=== PATIENT | female | born 1970 | race Hispanic/Latino ===

== ENCOUNTER 2017-04-23 10:40 | Outpatient (CLI) | payer BC ==
--- NOTE | 2017-04-23 15:51 | Mammography Report ---
BILATERAL DIGITAL SCREENING MAMMOGRAM with CAD and 3-D TOMOSYNTHESIS: 04/23/17 CLINICAL: Routine screening. COMPARISON:03/06/16, 02/09/15 and 01/08/13 FINDINGS: The breasts are mostly fatty with stable bilateral residual heterogeneously dense retroareolar fibroglandular densities. No mass, architectural distortion or suspicious calcifications. IMPRESSION: No mammographic evidence of malignancy. BI-RADS CATEGORY: 2 - - Benign RECOMMENDATION: Routine mammographic screening in one year. COMMENT: Patient follow-up letters are generated by our [facility] application.
== END 2017-04-23 10:41 | disposition home or self-care (01) ==
LOC: MAMMO 10:40
PROVIDERS: ATTEND Surgery
DX: Z12.31 Encounter for screening mammogram for malignant neoplasm of breast (principal)
CPT/HCPCS: 77063; G0202; 77067

== ENCOUNTER 2019-08-11 13:08 | Emergency (ER) | payer BC, OTHER ==
--- NOTE | 2019-08-11 13:21 | Event Note ---
ED Screening Note Date of service: 08/11/19 Time: 13:20 ED Screening Note: 49-year-old female presents to the emergency room for an acute onset of nausea and headache that is between her eyes at the bridge of her nose. Patient reports a past medical history of migraines but does not feel like it is her typical migraine presentation. Patient reports that she is started having heart palpitation was not able to lay her head down as if she was having discomfort. Patient denies any cardiac history. This initial assessment/diagnostic orders/clinical plan/treatment(s) is/are subject to change based on patients health status, clinical progression and re- assessment by fellow clinical providers in the ED. Further treatment and workup at subsequent clinical providers discretion. Patient/guardian urged not to elope from the ED as their condition may be serious if not clinically assessed and managed. Initial orders include: CBC CMP EKG
[2019-08-11 13:55] LABS: Basophils % (Auto) 0.5 % (0.0-1.8); Eosinophils # (Auto) 0.1 K/mm3 (0.0-0.4); Eosinophils % (Auto) 0.9 % (0.0-4.3); Hemoglobin 13.4 gm/dl (10.1-14.3); Lymphocytes # (Auto) 1.6 K/mm3 (1.2-5.4); Lymphocytes % (Auto) 21.8 % (13.4-35.0); Mean Corpuscular HGB Conc 34 % (30-34); Mean Corpuscular Volume 89 fl (79-97); Monocytes # (Auto) 0.3 K/mm3 (0.0-0.8); Monocytes % (Auto) 4.4 % (0.0-7.3); Platelet Count 244 K/mm3 (140-440); Red Cell Distribution Width 13.1 % (13.2-15.2)
[2019-08-11] MEDS ORDERED: MORPHINE 2 MG/1 ML INJ IV ONE (14:04)
[2019-08-11] MEDS ORDERED: ONDANSETRON 4 MG/2 ML INJ IV ONE (14:04)
--- NOTE | 2019-08-11 14:11 | Emergency Department Report ---
ED General Adult HPI - General Chief complaint: Dizziness Stated complaint: HOT, N/V Time Seen by Provider: 08/11/19 13:53 Source: patient Mode of arrival: Ambulatory Limitations: No Limitations - History of Present Illness Initial comments: This is a 49-year old female who describes the rapid onset of headache which she states is very well localized in the mid forehead and nasal bridge area. She states she also feels a headache although less severe in the occiput. Patient states that she has had a history of migraine which causes right-sided headache. However this headache is different in quality and in location. She states that she has never had a CT scan of her head or any other diagnostic study of her brain. She has not seen a neurologist. She states that she has been prescribed Maxalt for migraine as well as prophylactic medication which she does not take now. She states that she did not take her Maxalt with this headache. She felt like she was clammy and somewhat dizzy at the onset. She felt like this headache was different and required evaluation in the emergency department. She is keeping her eyes closed but denies photophobia or photosensitivity. She likewise is not complaining of nausea or vomiting. She states that she ordinarily does have spots or squiggly lines with her migraine headache but not at this time. She denies neck stiffness or pain. -: Sudden (Fairly rapid onset) Location: head Radiation: non-radiation (As above described) Quality: sharp Consistency: constant Improves with: none Worsens with: none Associated Symptoms: other (Dizziness as above, felt clammy) Treatments Prior to Arrival: none - Related Data Previous Rx's Medication Instructions Recorded Last Taken Type Butalb/Acetaminophen/Caffeine 1 cap PO Q6HR PRN #10 cap 08/11/19 Unknown Rx [Fioricet 50-300-40 mg CAP] Allergies Allergy/AdvReac Type Severity Reaction Status Date / Time No Known Allergies Allergy Unverified 04/23/17 10:40 ED Review of Systems ROS: Stated complaint: HOT, N/V Other details as noted in HPI Constitutional: denies: chills, fever Eyes: denies: eye pain, eye discharge, vision change ENT: denies: ear pain, throat pain Respiratory: denies: cough, shortness of breath, wheezing Cardiovascular: denies: chest pain, palpitations Endocrine: no symptoms reported Gastrointestinal: denies: abdominal pain, nausea, diarrhea Genitourinary: denies: urgency, dysuria, discharge Musculoskeletal: denies: back pain, joint swelling, arthralgia Skin: denies: rash, lesions Neurological: headache. denies: weakness, numbness, paresthesias, confusion, abnormal gait Psychiatric: denies: anxiety, depression Hematological/Lymphatic: denies: easy bleeding, easy bruising ED Past Medical Hx - Past Medical History Previous Medical History?: No Hx Headaches / Migraines: Yes - Surgical History Past Surgical History?: Yes Additional Surgical History: 2 . HYSTERECTOMY - Social History Smoking Status: Never Smoker Substance Use Type: None - Medications Home Medications: Home Medications Medication Instructions Recorded Confirmed Last Taken Type Butalb/Acetaminophen/Caffeine 1 cap PO Q6HR PRN #10 cap 08/11/19 Unknown Rx [Fioricet 50-300-40 mg CAP] ED Physical Exam - General Limitations: No Limitations General appearance: alert, in no apparent distress - Head Head exam: Present: atraumatic, normocephalic - Eye Eye exam: Present: normal appearance. Absent: scleral icterus - ENT ENT exam: Present: mucous membranes moist - Neck Neck exam: Present: normal inspection - Respiratory Respiratory exam: Present: normal lung sounds bilaterally. Absent: respiratory distress - Cardiovascular Cardiovascular Exam: Present: regular rate, normal rhythm. Absent: systolic murmur, diastolic murmur, rubs, gallop - GI/Abdominal GI/Abdominal exam: Present: soft, normal bowel sounds. Absent: distended, tenderness, guarding, rebound, rigid - Extremities Exam Extremities exam: Present: normal inspection - Back Exam Back exam: Present: normal inspection - Neurological Exam Neurological exam: Present: alert, oriented X3, CN II-XII intact, other (Visual vera were equal by confrontation out without apparent deficit. [id number] was normally performed. There is no drift.). Absent: motor sensory deficit - Psychiatric Psychiatric exam: Present: normal affect, normal mood - Skin Skin exam: Present: warm, dry, intact, normal color. Absent: rash ED Course Vital Signs 08/11/19 08/11/19 08/11/19 13:20 13:50 14:07 Temperature 97.5 F L Pulse Rate 87 70 70 Respiratory 18 16 12 Rate Blood Pressure 137/93 Blood Pressure 137/86 [Left] O2 Sat by Pulse 100 98 Oximetry 08/11/19 08/11/19 08/11/19 14:15 14:49 14:57 Temperature Pulse Rate 66 Respiratory 13 20 Rate Blood Pressure 133/78 133/78 Blood Pressure [Left] O2 Sat by Pulse 97 99 Oximetry 08/11/19 08/11/19 15:27 15:31 Temperature Pulse Rate 71 Respiratory 13 13 Rate Blood Pressure Blood Pressure 134/81 [Left] O2 Sat by Pulse 100 Oximetry - Reevaluation(s) Reevaluation #1: Patient will be given analgesia. I have ordered a CT of her head. We will proceed with angiography unless any gross abnormality is seen. I will review her on contrasted CT the radiology department. 08/11/19 14:11 Reevaluation #2: Patient feeling improved well enough to go home. Will review angio reports. 08/11/19 15:29 ED Medical Decision Making - Lab Data Result diagrams: 08/11/19 13:37 08/11/19 13:37 - EKG Data -: EKG Interpreted by Mo EKG shows normal: sinus rhythm, axis, intervals, QRS complexes, ST-T waves Rate: normal - EKG Data Interpretation: normal EKG - Radiology Data Radiology results: report reviewed (Unenhanced CT is normal), image reviewed Critical care attestation.: If time is entered above; I have spent that time in minutes in the direct care of this critically ill patient, excluding procedure time. ED Disposition Clinical Impression: Cephalalgia Qualifiers: Headache type: unspecified Headache chronicity pattern: acute headache I ntractability: not intractable Qualified Code(s): R51 - Headache Disposition: - TO HOME OR SELFCARE Is pt being admited?: No Does the pt Need Aspirin: No Condition: Stable Instructions: Acute Headache (ED) Additional Instructions: Return any acute change or problem. Prescriptions: Butalb/Acetaminophen/Caffeine [Fioricet 50-300-40 mg CAP] 1 cap PO Q6HR PRN #10 cap PRN Reason: Headache Referrals: ETIENNE MEADE MD [Primary Care Provider] - 2-3 Days Time of Disposition: 15:54
[2019-08-11 14:16] LABS: Alanine Aminotransferase 19 units/L (7-56); Albumin 4.5 g/dL (3.9-5); BUN/Creatinine Ratio 21; Blood Urea Nitrogen 15 mg/dL (7-17); Calcium 9.8 mg/dL (8.4-10.2); Hemolysis Index 20
--- NOTE | 2019-08-11 15:11 | Cat Scan Report ---
NONENHANCED CT SCAN OF THE BRAIN: INDICATION/CLINICAL INFORMATION: Headaches TECHNIQUE: Routine CT head without intravenous contrast. All CT scans at this location are performed using CT dose reduction for ALARA by means of automated exposure control. COMPARISON: None FINDINGS: BRAIN/INTRACRANIAL CONTENTS: Hemorrhage: None Vascular abnormalities: None Edema/ Mass effect: None Extracerebral space: Normal No mass effect, midline shift, hydrocephalus or acute large territorial infarction no chronic infarct ion of encephalomalacia. Ventricular/sulcal size normal for age. No significant white matter abnormal ity CRANIOCERVICAL JUNCTION: No significant abnormality. ORBITS: No significant abnormality of visualized orbits. SINUSES / MASTOIDS: No significant abnormality of the visualized paranasal sinuses or mastoid air lillie ls. ADDITIONAL FINDINGS: None. IMPRESSION: Normal nonenhanced CT scan of the brain Signer Name: Sintia Madsen MD Signed: 08/11/2019 3:06 PM Workstation Name: [id number]
--- NOTE | 2019-08-11 16:05 | Cat Scan Report ---
CTA HEAD WITH CONTRAST HISTORY: Headaches COMPARISON: None. TECHNIQUE: Routine non-contrast CT Head, CTA of the head and post-contrast CT Head are performed. 3-D /MIP reformats postprocessed. All CT scans at this location are performed using CT dose reduction for ALARA by means of automated exposure control CONTRAST: 100 ml of Omnipaque 350 FINDINGS: CTA Head: Intracranial vertebral arteries: No significant abnormality. Basilar artery: No significant abnormality. Posterior cerebral arteries: No significant abnormality. Right posterior right posterior cerebral art cortney. Left posterior artery contributing to left posterior cerebral artery. Intracranial internal carotid arteries: No significant abnormality. Anterior cerebral arteries: No significant abnormality. Middle cerebral arteries: No significant abnormality. Dural venous sinuses:Not optimally opacified. No significant abnormality. Additional findings: None. IMPRESSION: 1. No significant abnormality. Signer Name: Sintia Madsen MD Signed: 08/11/2019 4:00 PM Workstation Name: [id number]
--- NOTE | 2019-08-11 16:56 | Cat Scan Report ---
CTA NECK WITH CONTRAST HISTORY: Acute headache COMPARISON: None. TECHNIQUE: Routine CTA of the neck is performed. 3-D/MIP reformats were postprocessed. Percentage st enosis is determined by direct quantitative measurements of diseased internal carotid artery diameter compared with normal distal internal carotid artery reference segments or by criteria similar to RADHA CET where applicable. All CT scans at this location are performed using CT dose reduction for ALARA b y means of automated exposure control. CONTRAST: 100 ml of Omnipaque 350 FINDINGS: Aortic arch: No significant abnormality. Cervical vertebral arteries: No significant abnormality. Common carotid arteries: No significant abnormality. Cervical internal carotid arteries: No significant abnormality. Additional findings: There are some tiny subcentimeter thyroid nodules that do not require dedicated imaging follow-up. IMPRESSION: 1. No significant abnormality in the cervical arteries. Signer Name: Blake Mike MD Signed: 08/11/2019 4:52 PM Workstation Name: [id number]
[2019-08-11 18:20] VITALS: BP 134/78
== END 2019-08-11 17:40 | disposition home or self-care (01) ==
LOC: ED 13:08
DX: R51 Headache (principal); Z79.899 Other long term (current) drug therapy; Z98.890 Other specified postprocedural states; Z90.710 Acquired absence of both cervix and uterus
CPT/HCPCS: 36415; 70450; 70496; 70498; 80053; 85025; 93005; 93010; 96374; 96375; 99284; J2270; J2405; Q9967